=== PATIENT | female | born 1975 ===

== ENCOUNTER → 2016-06-27 | Day surgery (SDC) | payer OTHER ==
[~2016-06-27] VITALS: Ht 165.1 cm; Wt 67.6 kg
[2016-06-27] VITALS (9 sets, daily range): BP systolic 103–129; BP diastolic 63–73
[~2016-06-27] MED LIST: GABAPENTIN600 MG ORAL; LR 1000ml ONE; Lidocaine 1% MPF 10mg/ml 5ml ONE; Propofol 10mg/ml 20ml IV ONE
--- NOTE | 2016-06-27 07:57 | Short Stay Surgery H&P ---
History of Present Illness History of Present Illness Chief Complaint Upper abdominal pains, GERDS. HPI Alicia Liz is a 41 year old female who was admitted on for GERD and abdominal pain. Patient History Allergies: Coded Allergies: No Known Allergies (Unverified , 06/27/16) PAST MEDICAL HISTORY: Past Surgeries: (1) delivery delivered (2) H/O foot surgery Social History: Medication History Scheduled Gabapentin* (Gabapentin*), 600 MG ORAL BID, (Reported) Review of Systems Cardiovascular: Reports: no symptoms Respiratory: Reports: no symptoms Skeletal: Reports: no symptoms Gastrointestinal: Reports: gastro esophageal reflux disease, no symptoms, see HPI Genitourinary: Reports: no symptoms Neurologic: Reports: no symptoms Endocrine: Reports: no symptoms Hematologic: Reports: no symptoms Physical Exam Labs Laboratory Tests Test 06/27/16 07:10 Urine HCG, Qualitative Negative Skin: normal HENT: normal Heart: normal Lungs: normal Abdomen: abnormal Extremities: normal Genitourinary: normal Plan Plan of Care Upper GI endoscopy with biopsy Preop Interventions None. Summary of Findings See the reports Final Diagnosis: Attestation Are the patient's medical conditions optimized for surgery? Attestation Response: yes HAILEY ANTONIO Jun 27, 2016 07:57
--- NOTE | 2016-06-27 07:58 | Pre-Procedure Note/Attestation ---
Pre-Procedure Note/Attestation Complete Prior to Procedure Planned Procedure: left Procedure Narrative: The endoscopic exam of the upper GI tract. Indications for Procedure Pre-Operative Diagnosis: R/O Peptic Ulcer/Gastritis Attestation I attest that I discussed the nature of the procedure; its benefits; risks and complications; and alternatives (and the risks and benefits of such alternatives ), prior to the procedure, with the patient (or the patient's legal apparel trimmings sales representative). I attest that, if there was a reasonable possibility of needing a blood transfusion, the patient (or the patient's legal apparel trimmings sales representative) was given the [facility] standardized written summary, pursuant to the Maxime Stalin Blood Safety Act ([place] Health and Safety Code # 1645, as amended). I attest that I re-evaluated the patient just prior to the surgery and that there has been no change in the patient's H&P, except as documented below: PACO,SAID Jun 27, 2016 07:58
--- NOTE | 2016-06-27 08:14 | Endoscopy Procedure Note ---
Endoscopy Procedure Note Indication for Procedure: Abdominal pains, GERDs. Procedures Performed: EGD - Moderate gastritis of the antrum (Antritis) biopsied and occasional small blood clots adhering to the gastric wall without specific source of bleeding site considered mostly secondary to gastritis. Specimen: yes Pt Tolerated Procedure Well: Yes Estimated Blood Loss: none Anesthesiologist: Dr. Rose Anesthesia: moderate sedation Medication Given: see anesthesia record Implant(s) used?: No 50 yrs or older w/o bx or poly: Not Applicable 10yrs. F/U not recommended: Not Applicable Med reason:<3 yrs.: System Reason:<3 yrs.: HAILEY ANTONIO Jun 27, 2016 08:14
--- NOTE | 2016-06-27 08:16 | Discharge Instructions ---
Discharge Instructions Discharge Instructions Follow up with: See the doctor after 2 weeks in the office. For Congestive Heart Failure Reminder Report to your physician any weight gain of 5 pounds or more in one week. PACO,HAILEY Jun 27, 2016 08:16
--- NOTE | 2016-06-27 08:24 | Immediate Post-Op Evaluation ---
Immediate Post-Op Evalulation Immediate Post-Op Evalulation Procedure: EGD Date of Evaluation: Jun 27, 2016 Time of Evaluation: 08:20 IV Fluids: 300 Blood Pressure Systolic: 107 Blood Pressure Diastolic: 70 Pulse Rate: 58 Respiratory Rate: 14 O2 Sat by Pulse Oximetry: 100 Temperature (Fahrenheit): 97.7 Nausea: No Vomiting: No Complications none Patient Status: awake, patent Hydration Status: adequate Drug: none STACEY CAMPA CRNA Jun 27, 2016 08:24
--- NOTE | 2016-06-27 08:27 | Anethesia Preoperative Eval ---
Anesthesia Pre-op PMH/ROS General Date of Evaluation: Jun 27, 2016 Time of Evaluation: 08:25 Anesthesiologist: lian ASA Score: ASA 2 Mallampati Score Class I : Soft palate, uvula, fauces, pillars visible Class II: Soft palate, uvula, fauces visible Class III: Soft palate, base of uvula visible Class IV: Only hard plate visible Mallampati Classification: Class II Surgeon: Sonia Diagnosis: GERD Surgical Procedure: EGD Anesthesia History: none Family History: no anesthesia problems Allergies: Coded Allergies: No Known Allergies (Unverified , 06/27/16) Medications: see eMAR Past Medical History Cardiovascular: Reports: HTN - hx Pulmonary: Denies: COPD, ROCAEL, asthma, other Gastrointestinal/Genitourinary: Reports: GERD Neurologic/Psychiatric: Denies: CVA, TIA, dementia, depression/anxiety, other Endocrine: Denies: DM, hypothyroidism, other, steroids HEENT: Denies: CHEESH-NA (L), CHEESH-NA (R), cataract (L), cataract (R), glaucoma, other Hematology/Immune: Denies: DVT, anemia, bleeding disorder, other Musculoskeletal/Integumentary: Denies: DDD, DJD, OA, RA, edema, other Anesthesia Pre-op Phys. Exam Physician Exam Last Vital Signs Date Time Temp Pulse Resp B/P Pulse Ox O2 Delivery O2 Flow Rate FiO2 06/27/16 08:01 97.7 46 20 107/73 100 Room Air Constitutional: NAD Neurologic: CN 2-12 intact Cardiovascular: RRR Respiratory: CTA Gastrointestinal: S/NT/ND Airway Exam Mallampati Score: Class II MO: full ROM: full Dentures: no lower, no upper Anesthesia Pre-op A/P Labs Urine Test Test 06/27/16 07:10 Urine HCG, Qualitative Negative Studies Pre-op Studies: EKG - SR Risk Assessment & Plan Plan: mac Status Change Before Surgery: No Pre-Antibiotics Drug: none Given Within 1 Hr of Incision: No STACEY CAMPA CRNA Jun 27, 2016 08:27
--- NOTE | 2016-06-27 08:55 | 48 Hour Post Anesthesia Eval ---
Post Anesthesia Evaluation Procedure: EGD Date of Evaluation: Jun 27, 2016 Time of Evaluation: 08:54 Blood Pressure Systolic: 105 0: 61 Pulse Rate: 46 Respiratory Rate: 14 O2 Sat by Pulse Oximetry: 100 Airway: patent Nausea: No Vomiting: No Hydration Status: adequate Mental Status/LOC: patient returned to baseline Post-Anesthesia Complications: none STACEY CAMPA CRNA Jun 27, 2016 08:55
--- NOTE | 2016-06-27 10:58 | Operative Note - Dictated ---
DATE OF OPERATION: 06/27/2016 REFERRING PHYSICIAN: Dr. Manpreet Llamas. PROCEDURE: Esophagogastroduodenoscopy with biopsy. PREOPERATIVE DIAGNOSES: 1. Abdominal pain. 2. History of gastroesophageal reflux. 3. Gastroesophageal reflux disease. 4. Rule out peptic ulcer disease. 5. Gastritis. POSTOPERATIVE DIAGNOSES: Moderate inflammatory process in the antrum consistent with antritis and occasionally minimal blood clot seen adherent to the gastric wall of uncertain source possibly secondary to gastritis. Biopsy taken from the antrum, otherwise normal study. SURGEON: Wallace De Santiago M.D. MEDICATION USED: Per Dr. Rose, anesthesiologist INSTRUMENT: GIF Olympus upper gastrointestinal video endoscope. DESCRIPTION OF PROCEDURE: The patient after arriving endoscopy unit, was told about risks and benefits of the procedure, which she accepted and signed the informed consent. She was then put on the left lateral decubitus position. After adequate IV sedation, scope was gently passed through the cricopharyngeal area, was lodged into the upper esophagus, gradually advanced towards gastroesophageal junction. The entire length of the esophagus looked normal. No evidence of varices, inflammatory process, ulceration, etc. was found. GE junction also looked normal without any evidence of David's or hiatal hernia. At this point, the scope was advanced into the stomach. Gastric cavity was distended with insufflation of air. The areas of the fundus and the body and the antrum were examined in an amusement ride operator fashion. The only abnormality was found in the area of the antrum, which presented itself with moderate inflammatory process with edema and erythema, and occasional minimal small blood clot adherent to the wall of the antrum along with other small blood clot in the mid body of the stomach. There was no any evidence of major ulcers or bleeding sites. No polyps or tumors was found. At this point, couple of biopsies from the antral area. For the most inflammatory process, was seen and obtained. Subsequently, scope was passed through normal looking pylorus. First and second portion of duodenum were found to be completely normal. Finally, scope was pulled out and the procedure was terminated. The patient tolerated the procedure well. Wallace De Santiago M.D. DR: /manjit JOB#: [id number] CC:
--- NOTE | 2016-06-27 12:18 | Pre-op HX & Phy Repo 2 SIG ---
DATE OF ADMISSION: 06/27/2016 REFERRING PHYSICIAN: HISTORY OF PRESENT ILLNESS: The applicant is a 40-year-old female, who is being seen prior to undergoing the procedure for upper GI endoscopy for which she has been scheduled to receive evaluation of her GI symptoms that she has been complaining subsequent to work injury. The patient basically complains of experiencing pain over the upper part of the abdomen and epigastric area associated with heartburn. Pain is consistent with GERD . She reports that severe heartburn episodes. Also she reports that the pain radiates toward her back and she has also had some experiences with occasional nausea and vomiting. The applicant has been receiving some medications mostly Tums that she has occasionally taken herself to control the condition of heartburn as I mentioned earlier, but still she continues to have symptoms. She also has nocturnal heartburn from which is awaken. Also complains of excessive gas and bloating. There has been no any history of major GI bleeding however, but she does have symptoms of excessive regurgitation symptoms and eructations which seems to be associated with these symptoms of GERD. 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 Injury was on the left ankle. Subsequently, she received this injury sutured. She also has received surgery and for that condition as well. PAST MEDICAL HISTORY: Possibly hypertension, but denies any hyperlipidemia or diabetes etc. PAST SURGICAL HISTORY: Two C-sections and left foot operation related to work accident. ALLERGIES: Not significant. HABITS: The applicant denies drinking alcohol or smoking cigarettes etc. REVIEW OF SYSTEMS: Review of systems basically history of present illness. PHYSICAL EXAMINATION: GENERAL: Reveals an alert and oriented female, does not seem to be in acute distress. Answers to questions quite properly. VITAL SIGNS: All stable. HEENT: Normocephalic. Pupils equal in size. No evidence of jaundice. Oral cavity, tongue midline and hydrated. No ulcer. NECK: Supple. No JVD or thyromegaly. CHEST: Clear to auscultation and percussion. No rales or rhonchi. HEART: S1, S2 normal. Regular rhythm. No gallops or murmur. ABDOMEN: Soft, but there is areas of tenderness moderately over the upper part of the abdomen and left upper quadrant as well. Other areas of tenderness all over the abdomen however. There is no palpable mass or organomegaly etc. EXTREMITIES: Unremarkable. NEUROLOGIC: Unremarkable. PREOPERATIVE IMPRESSION: 1. Epigastric pain consistent with possible gastroesophageal reflux, gastroesophageal reflux disease aggravated by side effects of after medication use for the treatment of bottling injury rule out peptic ulcer disease, gastritis, duodenal ulcer or esophagitis etc. 2. Possible underlying irritable bowel syndrome, IBS. RECOMMENDATION: The applicant seems to be stable at this time to undergo the procedure of upper GI endoscopy for which she has been scheduled. She understands the risks and benefits and signed the consent. Said Yazan De Santiago DR: Rakesh JOB#: [id number] CC: NANO
== END | disposition home or self-care (01) ==
LOC: GAS 06:57
DX: K29.50 Unspecified chronic gastritis without bleeding (principal); B96.81 Helicobacter pylori [H. pylori] as the cause of diseases classified elsewhere; K21.9 Gastro-esophageal reflux disease without esophagitis
CPT/HCPCS: 43239; 81025; J2704; J7120; 94003; 94150